=== PATIENT | male | born 1980 | race Caucasian/White ===

== ENCOUNTER 2018-09-11 05:28 | Day surgery (SDC) | payer OTHER ==
[~2018-09-11] VITALS: Ht 177.8 cm; Wt 60.3 kg
--- NOTE | ~2018-09-11 | O ---
[address] [address] OPERATIVE REPORT Name: ELIZ STROUDSTEVE Francois Room #: [facility]#: [id number] Admission: 09/11/18 Attend Phys: Marcus Page MD Discharge: 09/11/18 Date of : 82 Report #: [id number] THIS REPORT FOR: //name// CC: PRAKASH physician/PCP Marcus Page DATE OF SERVICE: 09/11/2018 SERVICE: Orthopedics. FACILITY: [facility]. SURGEON: Marcus Page MD SALES AND SERVICE REPRESENTATIVE: Mary Wolfe NP PREOPERATIVE DIAGNOSES: 1. Right hip pain. 2. Right hip femoroacetabular impingement. 3. Right hip labral tear. 4. Right hip acetabular chondromalacia. POSTOPERATIVE DIAGNOSES: 1. Right hip pain. 2. Right hip femoroacetabular impingement. 3. Right hip labral tear. 4., right hip acetabular chondromalacia. PROCEDURE: 1. Right hip arthroscopic labral repair. 2. Right hip arthroscopic extraarticular subspine acetabuloplasty. 3. Right hip arthroscopic Cam osteoplasty. 4. Right hip arthroscopic chondroplasty. COMPLICATIONS: None. DRAINS: None. SPECIMENS: None. ANESTHESIA: General with regional. FINDINGS: 1. Grade 3 and 4 chondromalacia of the acetabular rim extending from the 2 o'clock position to approximately the 8 o'clock position treated with chondroplasty. There were no contained defects that would benefit from [address] [address] OPERATIVE REPORT Name: LE STROUD Room #: [facility]#: [id number] Admission: 09/11/18 Attend Phys: Marcus Page MD Discharge: 09/11/18 Date of : 82 Report #: [id number] microfracture. 2. Acetabular labral tear repaired with Vida CinchLock suture anchor x 2. 3. High lateral Cam bump treated with Cam osteoplasty. HISTORY: The patient is a 38-year-old gentleman with a history of chronic persistent progressive right hip pain that had failed all conservative measures. He had tried extensive therapy as well as activity modification, rest, oral medications and intraarticular injection all without sufficient relief. He continued to have lifestyle-limiting pain. He had imaging that was indicative of femoroacetabular impingement with an alpha angle of approximately 85 degrees and a small crossover sign attributable to a prominent anterior inferior iliac spine. The Tonnis grade is 1. The MRI showed a large labral tear as well as acetabular rim chondrosis. We had a discussion about optimal treatment strategies after he had failed all conservative measures and elected to undergo surgical treatment. We discussed right hip arthroscopy, treatment of the impingement and labral repair with treatment of the chondral pathology as indicated with the possibility for microfracture if indicated. He expressed understanding and wished to proceed with surgical plan. Risks, benefits, alternatives and indications were discussed. Risks include but not limited to pain, bleeding, infection, injury to nerves or blood vessels, persistent pain despite surgical intervention, failure of any repairs, reconstructions, progression of a preexisting chondral injury, stiffness, need for further surgery as well as complications related to anesthesia such as stroke, heart attack, pulmonary complications, thromboembolic disease and . Despite these risks, he wished to proceed. PROCEDURE IN DETAIL: After the right lower extremity was correctly identified as the operative extremity, the patient was taken to the operating room where general anesthesia was induced without complications. He was padded appropriately. Prophylactic antibiotics were administered at appropriate time. C-arm was used to assess the femoral head and neck junction and mapped out the Cam deformity. He had an alpha angle of approximately 85 degrees. Bilateral lower extremities were placed in traction boots and then the right leg was then prepped and draped in standard sterile fashion. Time-out procedure was performed. Traction was applied to the right lower extremity. Standard anterolateral viewing portal followed by mid anterior working portal was established in a typical fashion. There was significant amount of synovitis and erythema present as well as friable synovitic and capsular tissue. Transverse capsulotomy was performed. There was fraying of the chondral labral junction and an unstable labral tear at the anterior superior aspect of the hip. The capsule itself was soft and redundant. It was trimmed with a shaver off the dorsal side of the labrum to allow access to the subspine region where there was some prominent anterior column bone that was the source of the extraarticular component of his impingement. The bur was used to perform a subspine recession and then after [address] [address] OPERATIVE REPORT Name: LE STROUD [place] #[place] [facility] [place] [id number] Admission: 09/11/18 Attend Phys: Marcus Page MD Discharge: 09/11/18 Date of : 82 Report #: [id number] this was completed attention was turned towards the labrum. Two Vida CinchLock suture anchors were used with cerclage sutures to repair the labrum in a typical fashion. The labrum was found to be quite secure. At this point, there was significant amount of fraying at the chondral labral junction. The shaver as well as the meniscal biter were used to perform chondroplasty. There were no well localized shouldered and contained lesions, so I did not recommend or proceed with a microfracture procedure. After the chondroplasty was completed, the traction was let down. Attention was turned towards the Cam. He was noted to have some limited fraying of the femoral head articular cartilage as well in the weightbearing portion of the dome, but there was no full thickness or even partial thickness greater than about 25%. Pathology on the weightbearing portion of the femoral head peripherally there was some burnishing of the femoral head articular cartilage consistent with Cam impingement and with the hip reduced and the hip flexed, a Cam osteoplasty was performed with the bur in a typical fashion ensuring complete visualization over the top while protecting the vascular structures laterally. The instruments were removed from the hip. C-arm was brought in to assess the resection. I identified some additional bone anteriorly and needed to be resected. I placed instruments back into the hip, completed the Cam osteoplasty and then lavaged the bony debris out of the hip and closed the T-shaped capsulotomy with a total of four #2 Vicryl sutures. After this was completed, instruments were removed. The portal sites were closed. Sterile dressing was applied. The patient is awakened from anesthesia and taken to the recovery room in stable condition. There were no complications and all counts were recorded as correct. <ELECTRONICALLY SIGNED> By: Marcus Page MD 09/12/18 [id number] Marcus Page MD /nt
[2018-09-11 10:09] VITALS: BP 108/70
== END 2018-09-11 15:00 | disposition home or self-care (01) ==
LOC: OR 05:28 → TBA 05:28 → OR 09:35
DX: S73.101A Unspecified sprain of right hip, initial encounter (principal); M25.851 Other specified joint disorders, right hip; M94.251 Chondromalacia, right hip; X58.XXXA Exposure to other specified factors, initial encounter; Y93.89 Activity, other specified; Y92.89 Other specified places as the place of occurrence of the external cause; Y99.8 Other external cause status; Z98.890 Other specified postprocedural states; Z87.891 Personal history of nicotine dependence
CPT/HCPCS: 50010; 50101; 50386; 51320; 51538; 52001; 52255; 52282; 54118; 55430; 56524; 56527; 57092; 57103; 62110; 62900; 64041; 70005